=== PATIENT | female | born 1950 | race Caucasian/White ===

== ENCOUNTER 2019-04-01 11:30 | Emergency (ER) | payer MEDICARE, OTHER ==
[~2019-04-01] VITALS: Ht 170 cm; Wt 111.0 kg
[~2019-04-01 11:30] MED LIST: ACTOS; AMIT50TA3 PO; AMT50T; ATN25T; CLD600T; DPH25C; ENLP10T; FAMO20TA13; FLUO40CA PO; HCTZ12.5T; INSU100V8; MOBIC; NABUMETONE; OMG1KC; PRX20T; ROSI2TAB11; SIMVASTATIN; TRM50TRX; [UNRECOGNIZED DRUG - REMARK]
--- NOTE | 2019-04-01 12:20 | NUR ---
pt to radiology to obtain images
--- NOTE | 2019-04-01 12:37 | Diagnostic Imaging Report ---
INDICATION: Fall with left shoulder injury. TIME OF EXAMINATION: 12:27 PM. FINDINGS: The glenohumeral and acromioclavicular alignment is normal. No fracture or dislocation is identified. IMPRESSION: No acute bony abnormality is detected. Dictated by: Dictated on workstation # [id number]
--- NOTE | 2019-04-01 12:56 | NUR ---
pt sitting in ED bed quietly with family at side, pt shows no s/s of distress, pt denies any needs or c/o at this time, will continue to monitor
--- NOTE | 2019-04-01 13:04 | ED Fall/Injury ---
General Chief Complaint: Upper Extremity Stated Complaint: FELL ON KNEE AND ARM Nursing Triage Note: fell last night after tripping over her grandchild, has c/o L shoulder pain Source: patient Exam Limitations: no limitations History of Present Illness Date Seen by Provider: Apr 01, 2019 Time Seen by Provider: 12:05 Initial Comments This 68 year old woman presents to the ER with left shoulder injury. She tripped over her grandchild who was playing on the floor yesterday. She struck her left shoulder on the ground. She has had significant pain and reduced funct ion with reduced ROM since the injury. She arrives in a homemade sling. She denies any other significant injury. The was no head injury of LOC. Allergies and Home Medications Allergies Coded Allergies: Acetaminophen (Verified Allergy, Unknown, 12/03/06) Aspirin (Verified Allergy, Unknown, 12/03/06) Codeine (Verified Allergy, Unknown, 12/03/06) Propoxyphene (Verified Allergy, Unknown, 12/03/06) Home Medications Amitriptyline Hcl 50 Mg Tablet, 1 EACH PO HS Prescribed by: CAMERON CHEEMA on 02/24/12 1255 Atenolol 25 Mg Tablet, DAILY, (Reported) Calcium Carbonate/Vitamin D3 1 Tab Tablet, DAILY, (Reported) Diphenhydramine Hcl 25 Mg Capsule, 50 HS, (Reported) Enalapril Maleate 10 Mg Tablet, DAILY, (Reported) Fluoxetine Hcl 40 Mg Capsule, 1 EACH PO DAILY, (Reported) Hydrochlorothiazide 12.5 Mg Capsule, 25 DAILY, (Reported) Insulin Glargine,Hum.rec.anlog 100 U/Ml Vial, 20 A.M./40 P.M., (Reported) Lyman 3 Polyunsat Fatty Acids 1,000 Mg Cap, DAILY, (Reported) Tramadol Hcl 50 Mg Tab, 2 BID, (Reported) [Actos] , ?MG DAILY, (Reported) [Anti-Anxiety?] , DAILY, (Reported) [Mobic] , ?MG DAILY, (Reported) [Simvastatin] , ?MG 1.5 TABS DAILY, (Reported) Patient Home Medication List Home Medication List Reviewed: Yes Review of Systems Review of Systems Constitutional: no symptoms reported Eyes: No Symptoms Reported Ears, Nose, Mouth, Throat: no symptoms reported Respiratory: no symptoms reported Cardiovascular: no symptoms reported Gastrointestinal: no symptoms reported : No Musculoskeletal: see HPI Skin: no symptoms reported Psychiatric/Neurological: No Symptoms Reported Past Aprgcux-Xifpox-Gioplg Hx Patient Social History Alcohol Use: Denies Use Recreational Drug Use: No 2nd Hand Smoke Exposure: No Recent Foreign Travel: No Contact w/Someone Who Travel: No Recent Infectious Disease Expo: No Recent Hopitalizations: No Immunizations Up To Date Tetanus Booster (TDap): Unknown Seasonal Allergies Seasonal Allergies: No Past Medical History Surgeries: Yes (R ankle) Appendectomy, Gallbladder, Tonsillectomy Respiratory: No Cardiac: Yes Hypertension Neurological: No Genitourinary: No Gastrointestinal: No Musculoskeletal: No Endocrine: No HEENT: No Cancer: No Psychosocial: No Integumentary: No Blood Disorders: No Physical Exam Vital Signs Vital Signs - First Documented 04/01/19 04/01/19 11:51 13:27 Temp 37.2 Pulse 106 Resp 18 B/P (MAP) 155/84 (107) Pulse Ox 95 O2 Delivery Room Air Capillary Refill : Less Than 3 Seconds Height, Weight, BMI Height: '" Weight: lbs. oz. kg; 38.00 BMI Method: General Appearance: WD/WN, mild distress, obese HEENT: PERRL/EOMI, normal ENT inspection Neck: normal inspection Cardiovascular: regular rate, rhythm, no murmur Respiratory: lungs clear, normal breath sounds, no respiratory distress, no accessory muscle use Gastrointestinal: non tender, soft Extremities: other (Pain and tenderness in the left shoulder radiating up the region of the left trapezius. Pain with active or passive range of motion and palpation over the shoulder.) Neurologic/Psychiatric: manager client service II-XII nml as tested, no motor/sensory deficits, alert, normal mood/affect, oriented x 3 Skin: normal color, warm/dry Mario Coma Score Best Eye Response: (4) Open Spontaneously Best Verbal Response: (5) Oriented Best Motor Response: (6) Obeys Commands Mario Total: 15 Progress/Results/Core Measures Results/Orders My Orders Orders - KEYSHA DAMIAN MD Shoulder, Left, 3 Views (04/01/19 12:10) Vital Signs/I&O 04/01/19 04/01/19 11:51 13:27 Temp 37.2 37.2 Pulse 106 106 Resp 18 18 B/P (MAP) 155/84 (107) 155/84 (107) Pulse Ox 95 O2 Delivery Room Air Blood Pressure Mean: 107 Progress Progress Note : Progress Note No fracture was identified. Soft tissue injury such as rotator cuff tear was suspected. Patient was placed in a sling. Patient has pain medications at home and declines any further treatment of pain. She was dismissed into the care of her . Diagnostic Imaging Diagonstic Imaging: Xray Plain Films/CT/US/NM/MRI: other (Left shoulder) Comments Left shoulder x-ray viewed by me and report reviewed. NAME: AVILA SOTO [facility] REC#: [id number] PT STATUS: REG ER : 1950 PHYSICIAN: KEYSHA DAMIAN MD ADMIT DATE: 04/01/19/ER Draft Date of Exam:04/01/19 SHOULDER, LEFT, 3 VIEWS INDICATION: Fall with left shoulder injury. TIME OF EXAMINATION: 12:27 PM. FINDINGS: The glenohumeral and acromioclavicular alignment is normal. No fracture or dislocation is identified. IMPRESSION: No acute bony abnormality is detected. Dictated on workstation # [id number] Dict: 04/01/19 1232 Trans: 04/01/19 1237 [id number] Interpreted by: HILDA ANTHONY MD Departure Impression Primary Impression: Injury of left shoulder Qualified Codes: S49.92XA - Unspecified injury of left shoulder and upper arm, initial encounter Additional Impression: Fall on same level from tripping as cause of accidental injury Disposition: 01 HOME, SELF-CARE Condition: Stable Departure-Patient Inst. Decision time for Depature: 13:17 Patient Instructions: Shoulder Pain (DC) Add. Discharge Instructions: Use the sling as needed for comfort. You may continue using Ultram (tramadol) and meloxicam (Mobic) as prescribed for pain. You may additionally add Tylenol (acetaminophen). You may ice in 20 minute intervals to reduce pain and swelling. Follow-up with your primary care provider for reevaluation if not improving as expected. Seek referral to an orthopedist if needed. Gradually increase level of activity as pain allows. Return to care if you have worsening symptoms. All discharge instructions reviewed with patient and/or family. Voiced understanding. KEYSHA DAMIAN MD Apr 01, 2019 13:04
[2019-04-01 13:27] VITALS: BP 155/84
== END 2019-04-01 13:27 | disposition home or self-care (01) ==
LOC: MERGE 11:34 → ER 11:34
DX: S49.92XA Unspecified injury of left shoulder and upper arm, initial encounter (principal); I10 Essential (primary) hypertension; Z88.6 Allergy status to analgesic agent; Z88.5 Allergy status to narcotic agent; Z90.49 Acquired absence of other specified parts of digestive tract; Z90.89 Acquired absence of other organs; W01.0XXA Fall on same level from slipping, tripping and stumbling without subsequent striking against object, initial encounter
CPT/HCPCS: 73030